=== PATIENT | female | born 1980 | race Caucasian/White ===

== ENCOUNTER 2016-09-09 12:59 | Emergency (ER) | payer OTHER, BC ==
[2016-09-09 13:03] VITALS: BP 121/79; PULSE 73; RESP 15; TEMP 98.2; O2SAT 98
[2016-09-09] MEDS ORDERED: CLAR10CA3 PO (13:14)
[2016-09-09] MEDS ORDERED: MULTTAB67 PO (13:14)
[2016-09-09] MEDS ORDERED: VITACAP7 PO (13:14)
--- NOTE | 2016-09-09 14:32 | PD ---
HPI Chief Complaint: Exposure to Blood/Body Fluids Time Seen by Provider: 13:00 Travel History International Travel<30 days: No Contact w/Intl Traveler<30days: No Traveled to known affect area: No History of Present Illness HPI 36 year-old female presents to the emergency room for evaluation after needle stick injury that occurred just prior to arrival. 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 She immediately squeezed it and ran it under warm water. States a large amount of blood came out. Patient is concerned because the source patient told her that he was HIV positive but patient states he is unreliable. PFSH Past Medical History Medical History: Denies Significant Hx Diminished Hearing: No Tetanus Vaccination: < 5 Years Influenza Vaccination: Yes ?: Unknown LMP: 08/20/16 : 1 Para: 1 Past Surgical History Oral Surgery: Yes (Echo teeth) Social History Alcohol Use: Yes (Occ.) Tobacco Use: Yes (Occ.) Substance Use: No Allergies-Medications (Allergen,Severity, Reaction): Coded Allergies: Bactrim (Verified Allergy, Severe, SOB, rash, 09/09/16) Reported Meds & Prescriptions Reported Meds & Active Scripts Active Reported B Complex (B-Complex Vitamins) 1 Cap 1 Cap PO DAILY Multiple Vitamin 1 Tab 1 Tab PO DAILY Claritin (Loratadine) 10 Mg Cap 10 Mg PO DAILY Review of Systems Except as stated in HPI: all other systems reviewed are Neg Physical Exam Narrative GENERAL: Well-nourished, well-developed female in no acute distress. Afebrile. Ambulatory. SKIN: Focused skin assessment warm/dry. There is a small area of ecchymosis on the left thumb. HEAD: Normocephalic. EYES: No scleral icterus. No injection or drainage. NECK: Supple, trachea midline. No JVD or lymphadenopathy. CARDIOVASCULAR: Regular rate and rhythm without murmurs, gallops, or rubs. RESPIRATORY: Breath sounds equal bilaterally. No accessory muscle use. PSYCHIATRIC: No delusional thought processes. No hallucinations. Data Data Last Documented VS Vital Signs Date Time Temp Pulse Resp B/P Pulse Ox O2 Delivery O2 Flow Rate FiO2 09/09/16 13:03 98.2 73 15 121/79 98 Orders Ed Urine Pregnancytest Poc (09/09/16 14:41) MDM Medical Decision Making Medical Screen Exam Complete: Yes Emergency Medical Condition: Yes Medical Record Reviewed: Yes Differential Diagnosis needle stick injury, abrasion, HIV Narrative Course 36-year-old female presents to the emergency room for evaluation of needle stick injury to her left thumb that occurred just prior to arrival. 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 She states she may have skinned his abdomen skin before poking herself in the left thumb. She immediately squeeze the wound and ran it under water. Her patient and informed her that he was possibly HIV positive. He is unsure and patient states he is not reliable given history of TBI. Rapid HIV testing from source patient was initiated. Patient's labs were drawn in the ED. She was counseled to decline PEP at this time as her stick is very low risk. Patient was informed that 3 per 1000 people with a HIV contaminated needle stick injury develop HIV. Seeing as her needle was extremely small and may not have even punctured the patient's skin and was not intravenous, I do not feel she is a high risk and requires prophylaxis. Patient was considering getting her first dose of prophylaxis in the emergency room because of his possible status but eventually declined treatment out of fear of side effects. She was told to follow up with [facility]. She understands and agrees. Diagnosis Primary Impression: Needle stick injury of finger Qualified Code: S61.239A - Needle stick injury of finger, initial encounter Referrals: [facility] Primary Care Physician Patient Instructions: General Instructions, Needle Stick Injuries (ED) Disposition: 01 DISCHARGE HOME Condition: Stable Mary Zhang Sep 09, 2016 14:32
== END 2016-09-09 15:03 | disposition home or self-care (01) ==
LOC: PHEFT 12:59
DX: S61.032A Puncture wound without foreign body of left thumb without damage to nail, initial encounter (principal); W46.0XXA Contact with hypodermic needle, initial encounter; Y93.F9 Activity, other caregiving; Y92.239 Unspecified place in hospital as the place of occurrence of the external cause; Y99.0 Civilian activity done for income or pay; Z77.21 Contact with and (suspected) exposure to potentially hazardous body fluids; Z72.0 Tobacco use
CPT/HCPCS: 84703; 99282

== ENCOUNTER → 2017-06-12 | Outpatient (CLI) | payer OTHER ==
[~2017-06-12] MED LIST: CLAR10CA3 PO; MULTTAB67 PO; VITACAP7 PO
[2017-06-12 10:36] LABS: AUTOMATED NEUTROPHIL # 4.1 TH/MM3 (1.8-7.7); BASOPHIL # 0.1 TH/MM3 (0-0.2); EOSINOPHIL # 0.4 TH/MM3 (0-0.4); EOSINOPHIL % 5.5 % (0.0-4.0); LYMPH % 27.5 % (9.0-44.0); LYMPHOCYTE # 1.9 TH/MM3 (1.0-4.8); MEAN CELL VOLUME 97.5 FL (80.0-100.0); MEAN CORPUSCULAR HEMOGLOBIN 32.5 PG (27.0-34.0); MEAN CORPUSCULAR HGB CONC 33.4 % (32.0-36.0); MEAN PLATELET VOLUME 8.7 FL (7.0-11.0); MONO % 7.3 % (0.0-8.0); MONOCYTE # 0.5 TH/MM3 (0-0.9); NEUT % 58.7 % (16.0-70.0); PLATELET COUNT 206 TH/MM3 (150-450); RED CELL DISTRIBUTION WIDTH 12.7 % (11.6-17.2)
[2017-06-12 10:54] LABS: ALBUMIN 4.1 GM/DL (3.4-5.0); ALT (GPT) 23 U/L (10-53); AST (GOT) 16 U/L (15-37); BLOOD UREA NITROGEN 16 MG/DL (7-18); CALCIUM 8.2 MG/DL (8.5-10.1); CHLORIDE 105 MEQ/L (98-107); CHOLESTEROL 139 MG/DL (120-200); CREATININE 0.64 MG/DL (0.50-1.00); GLOMERULAR FILTRATION RATE 106 ML/MIN (>89); GLUCOSE,FASTING 73 MG/DL (74-99); SODIUM (NA) 138 MEQ/L (136-145)
[2017-06-12 11:04] LABS: ALKALINE PHOSPHATASE 46 U/L (45-117); CHOLESTEROL/ HDL RATIO 1.89 RATIO; HDL CHOLESTEROL 73.5 MG/DL (40.0-60.0); LDL CHOLESTEROL 59 MG/DL (0-99); TOTAL BILIRUBIN ADULT 0.5 MG/DL (0.2-1.0); TOTAL PROTEIN 7.7 GM/DL (6.4-8.2); TRIGLYCERIDES 31 MG/DL (42-150)
[2017-06-12 11:13] LABS: BILIRUBIN, URINE NEG (NEG); BLOOD, URINE NEG (NEG); GLUCOSE,URINE NEG (NEG); KETONE, URINE 10 mg/dL (NEG); MUCUS URINE MANY /lpf (OCC); NITRITE,URINE NEG (NEG); PH, URINE 6.5 (5.0-8.5); SQUAMOUS EPITHELIAL CELL URINE 4 /hpf (0-5); URINE COLOR YELLOW (YELLW/STRAW); URINE LEUKOCYTE ESTERASE NEG (NEG)
[2017-06-12 16:34] LABS: HEMOGLOBIN A1C 4.9 % (4.3-6.0)
== END ==
LOC: PLAB 07:53
PROVIDERS: ATTEND Nurse Practitioner Family
DX: R11.0 Nausea (principal); R82.4 Acetonuria; Z11.3 Encounter for screening for infections with a predominantly sexual mode of transmission; Z13.29 Encounter for screening for other suspected endocrine disorder; Z13.220 Encounter for screening for lipoid disorders
CPT/HCPCS: 36415; 80053; 80061; 81001; 82306; 83036; 84443; 84702; 85025; 86317; 86592; 86695; 86696; 86703; 86803; 87491; 87591